=== PATIENT | female | born 1990 | race Caucasian/White ===

== ENCOUNTER → 2021-09-13 09:04 | Outpatient (CLI) | payer OTHER, SELFPAY ==
--- NOTE | ~2021-09-13 | US_ITS ---
US OB /maternal detail DATE: 09/13/2021 09:46 INDICATION: anatomy screen TECHNIQUE: Real-time imaging and Doppler analysis COMPARISON: None FINDINGS: Live davis intrauterine gestation, fetus active and in variable presentation during the examination. Anterior placenta. Lower placental margin is 5.7 cm above the cervix. Subjectively normal amount of amniotic fluid. No cerebral ventriculomegaly. Nose and lips appear normal. Normal cerebellum, cisterna ma gna fold. The spine appears intact on transverse and longitudinal images. 14 with heart. Normal left and right ventricular outflow tracts. heart rate of 138 bpm. Three-vessel umbilica l cord. Normal insertion of the umbilical cord at abdominal wall. The kidneys are normal without hydronephrosis. Fluid is demonstrated in the stomach and urinary bladder. All 4 e xtremities are demonstrated. Biparietal diameter 4.65 cm; 20 weeks Head circumference 17.32 cm; 19 weeks 6 days Abdominal circumference 15.02 cm; 20 weeks 2 days Femur length 3.07 cm; 19 weeks 4 days Composite age by Hadlock formula is 20 weeks +/- 1 week 3 days with JUAN of 01/31/2022, compared to 01/19 according to LMP Estimated weight GP: 25.7% Estimated weight: 320.4 +/- 48 g. Head circumference/abdominal circumference 1.15, within normal range of 1.08-1.25 Femur length/head circumference 17.70, within normal range of 16.80-19.80 IMPRESSION: Estimated gestational age of 20 weeks +/- 1 week 3 day with JUAN of 01/31/2022 Normal anatomy screen Reviewed, dictated and finalized at [facility]. Reviewed, dictated and finalized at [facility]. [employer]
== END ==
PROVIDERS: Visit Provider Obstetrics & Gynecology
DX: Z36.9 Encounter for antenatal screening, unspecified (principal); Z3A.20 20 weeks gestation of pregnancy
CPT/HCPCS: 76805

== ENCOUNTER 2023-12-11 08:50 | Outpatient (CLI) | payer BC, SELFPAY ==
--- NOTE | ~2023-12-11 | US_ITS ---
EXAMINATION: US OB /maternal detail DATE: 12/11/2023 09:27 INDICATION: anatomic survey. TECHNIQUE: Real-time ultrasound of the pelvis was performed. COMPARISON: None. FINDINGS: There is a single living fetus in vertex presentation. The placenta is anterior, greater than 5 cm f rom the cervix. The cervical length is 4.1 cm on transabdominal images, which is normal. heart rate is 165 beats per minute (bpm). The amniotic fluid volume is subjectively normal. The following biometric data were obtained: Biparietal diameter (BPD): 4.5 cm; head circumference (HC): 17.0 cm; abdominal circumference (AC): 15 .6 cm; femur length (FL): 3.2 cm. These measurements are concordant. Estimated weight is 344 g +/- 52 g, which correlates with the 62nd percentile when 04/29/24 is us ed as estimated date of delivery. As single measurements, these parameters are each equal to the following estimated gestational ages: BPD: 19 weeks 5 days. HC: 19 weeks 4 days. AC: 20 weeks 5 days. FL: 19 weeks 6 days. estimated gestational age based solely on measurements from this exam is 20 weeks 0 days +/- 1 weeks 3 days. The cerebral ventricles, cerebellum, cisterna magna, nuchal fold, and visualized portions of the spin e are normal. The heart is normal. The diaphragm, stomach, kidneys, and bladder are normal. There are two umbilical arteries to yield a 3-vessel cord. The cord insertion is normal. IMPRESSION: 1. Single living fetus in vertex presentation. 2. Estimated weight is 344 g +/- 52 g, which correlates with the 62nd percentile when 04/29/24 i s used as estimated date of delivery. 3. Normal anatomic survey. Reviewed, dictated and finalized at [facility]. IMPRESSION: 1. Single living fetus in vertex presentation. 2. Estimated weight is 344 g +/- 52 g, which correlates with the 62nd pe rcentile when 04/29/24 is used as estimated date of delivery. 3. Normal anatomic survey.
== END 2023-12-11 08:51 ==
PROVIDERS: PCP Advanced Practice Midwife; Visit Provider Advanced Practice Midwife
DX: Z36.9 Encounter for antenatal screening, unspecified (principal); Z3A.20 20 weeks gestation of pregnancy
CPT/HCPCS: 76805